=== PATIENT | male | born 1970 | race Caucasian/White ===

== ENCOUNTER → 2017-04-10 | Outpatient (CLI) | payer BC ==
[~2017-04-10] MED LIST: AUGMENTIN 875 M1 TAB PO; BP MED; MOTRIN800 MG PO
== END | disposition home or self-care (01) ==
LOC: RESCLI 12:50
DX: I10 Essential (primary) hypertension (principal); M1A.09X0 Idiopathic chronic gout, multiple sites, without tophus (tophi)